=== PATIENT | female | born 1970 | race Two or more races ===

== ENCOUNTER 2022-09-10 18:34 | Emergency (ER) | payer OTHER ==
[~2022-09-10] VITALS: Ht 149.9 cm; Wt 69.4 kg
[2022-09-10] MEDS ORDERED: LEVOTHYROXINE25 MCG PO (19:05)
== END 2022-09-10 23:14 | disposition home or self-care (01) ==
LOC: ER 18:34
DX: T58.8X1A Toxic effect of carbon monoxide from other source, accidental (unintentional), initial encounter (principal); Y93.89 Activity, other specified; Y92.89 Other specified places as the place of occurrence of the external cause; G44.40 Drug-induced headache, not elsewhere classified, not intractable; Y92.813 Airplane as the place of occurrence of the external cause; E03.9 Hypothyroidism, unspecified; D70.8 Other neutropenia; D64.89 Other specified anemias; Z88.6 Allergy status to analgesic agent; Z88.0 Allergy status to penicillin